=== PATIENT | female | born 1955 | race African-American/Black ===

== ENCOUNTER 2024-03-09 04:09 | Inpatient (IN) | payer OTHER ==
[2024-03-09] MEDS ORDERED: ALBUTEROL SO4 2.5/IPRATROPIUM 0.5 INH SOL 3 ML VIAL.NEB. NEB ONE (04:46)
[2024-03-09] MEDS: ALBUTEROL SO4 2.5/IPRATROPIUM 0.5 INH SOL 3 ML VIAL.NEB. NEB STA (05:18)
[2024-03-09] MEDS: ALBUTEROL SO4 2.5/IPRATROPIUM 0.5 INH SOL 3 ML VIAL.NEB. NEB SCH ×2 (05:18→11:50)
[2024-03-09 05:32] LABS: VENOUS O2 SATURATION 29.1 % (70-80)
[2024-03-09 05:41] LABS: VENOUS PCO2 82.3 mmHg (38-52); VENOUS PH 7.147 (7.310-7.410)
[2024-03-09 05:46] LABS: POTASSIUM 5.8 mmol/L (3.5-5.1)
[2024-03-09 05:50] LABS: ALBUMIN 2.4 g/dl (3.4-5.0); CALCIUM 7.7 mg/dL (8.5-10.1)
[2024-03-09 05:52] LABS: BLOOD UREA NITROGEN 25.4 mg/dL (7-18)
[2024-03-09 05:53] LABS: CREATININE 1.2 mg/dL (0.55-1.3); INR 1.4 (0.83-1.09); PROTHROMBIN TIME (PATIENT) 16.2 SEC (9.7-13.0)
[2024-03-09 05:56] LABS: BILIRUBIN,TOTAL 0.3 mg/dL (0.2-1); TOT PROT 6.1 g/dl (6.4-8.2)
[2024-03-09 05:58] LABS: N-TERMINAL BNP 30409.8 pg/ml (5-125)
[2024-03-09 06:20] LABS: BASO % 0.9 % (0-2.0); HEMATOCRIT 38.2 % (32.4-45.2); HEMOGLOBIN 11.5 GM/dL (10.7-15.3); LYMPH % 20.7 % (8-40); MCH 26.3 pg (25.7-33.7); MCHC 30.2 g/dl (32.0-36.0); MEAN CELL VOLUME 87.2 fl (80-96); MEAN PLT VOLUME 8.9 fl (7.5-11.1); MONO % 8.7 % (3.8-10.2); NEUT % 69.7 % (42.8-82.8); PLATELET COUNT 231 10^3/uL (134-434); RBC 4.38 M/mm3 (3.60-5.2); RDW 17.8 % (11.6-15.6); WHITE BLOOD COUNT 4.8 K/mm3 (4.0-10.0)
[2024-03-09] MEDS ORDERED: NOREPINEPHRINE BITARTRATE 4 MG/4 ML ML IV ONE (06:39)
[2024-03-09 07:13] LABS: EPI CELLS 12 /uL (0-25.1); HYALINE CASTS 2 /uL (0-3.1); URINE APPEARANCE TURBID; URINE BACTERIA >9,000 /uL (0-1359); URINE BILIRUBIN 1+ (NEGATIVE); URINE COLOR DK YELLOW; URINE GLUCOSE (UA) NEGATIVE (NEGATIVE); URINE KETONE TRACE (NEGATIVE); URINE LEUK ESTERASE 3+ (NEGATIVE); URINE NITRITE NEGATIVE (NEGATIVE); URINE PROTEIN 2+ (NEGATIVE); URINE WBC 7216 /uL (0-25.8)
[2024-03-09 07:17] LABS: CALCIUM 8.2 mg/dL (8.5-10.1); POTASSIUM 5.9 mmol/L (3.5-5.1)
[2024-03-09 07:19] LABS: BLOOD UREA NITROGEN 26.7 mg/dL (7-18)
[2024-03-09 07:21] LABS: CREATININE 1.2 mg/dL (0.55-1.3)
[2024-03-09] MEDS ORDERED: PIPERACILLIN/TAZOB 4.5 GM 4.5 GM/100 ML BAG IVPB ONE (07:27)
[2024-03-09] MEDS: PIPERACILLIN/TAZOB 4.5 GM 4.5 GM in DEXTROSE 5%-WATER 100 ML IVPB ONE (07:35)
[2024-03-09] MEDS ORDERED: ALBUTEROL SO4 2.5/IPRATROPIUM 0.5 INH SOL 3 ML VIAL.NEB. NEB SCH (08:00)
[2024-03-09] MEDS ORDERED: VANCOMYCIN 1 GRAM (PRE-DOCKED) 1,000 MG/250 ML BAG IVPB ONE (08:00)
[2024-03-09] MEDS: VANCOMYCIN 1,000 MG in DEXTROSE 5%-WATER - 250 ML IVPB ONE (08:30)
[2024-03-09 09:16] LABS: YEAST NONE SEEN (NEGATIVE)
[2024-03-09] MEDS ORDERED: ARTIFICIAL TEARS OPHTHALMIC DROPS OU PRN (10:21)
[2024-03-09] MEDS ORDERED: [UNRECOGNIZED DRUG - OTHER] SQ SCH (11:00)
[2024-03-09] MEDS: methylPREDNISolone NA SUCC 40 MG/1 ML VIAL IVPUSH SCH (12:06)
[2024-03-09] MEDS: LEVOTHYROXINE SODIUM 100 MCG 5 ML VIAL IVPUSH SCH (12:08)
[2024-03-09] MEDS: NOREPINEPHRINE BITARTRATE 4,000 MCG in DEXTROSE 5%-WATER - 496 ML IV SCH (13:47)
[2024-03-09 14:22] LABS: ARTERIAL BLD GAS O2 SATURATION 97.1 % (95-98); ARTERIAL BLOOD GAS BASE EXCESS -2.9 mmol/L (-2-2); ARTERIAL BLOOD GAS PO2 105.9 mmHg (80-100); ARTERIAL BLOOD GAS pH 7.275 (7.350-7.450)
[2024-03-09 14:23] LABS: ALLENS TEST POSITIVE; VENT MODE S/T; VENT RATE 15
[2024-03-09] MEDS: MIDODRINE HCL 5 MG TABLET PO SCH (15:11)
[2024-03-09] MEDS: FUROSEMIDE 40 MG/4 ML INJECTABLE VIAL IVPUSH ONE (16:24)
[2024-03-09] MEDS: INSULIN ASPART SLIDING SCALE (NOVOLOG) 1 VIAL SQ SCH (16:56)
[2024-03-09] MEDS: PIPERACILLIN/TAZOB 3.375 GM 3.375 GM in DEXTROSE 5%-WATER - 50 ML IVPB SCH (17:19)
[2024-03-09] MEDS ORDERED: PIPERACILLIN/TAZOB 3.375 GM 3.375 GM in DEXTROSE 5%-WATER - 50 ML IVPB SCH (18:00)
[2024-03-09] MEDS ORDERED: DEXTROSE 50%-WATER 25 GM/50 ML DISP.SYRIN ONE (19:52)
[2024-03-09] MEDS ORDERED: INSULIN REGULAR HUMAN 100 UNITS/ML *VIAL ONE (19:52)
[2024-03-09] MEDS ORDERED: VANCOMYCIN HCL 1,500 MG in DEXTROSE 5%-WATER - 250 ML IVPB SCH (20:00)
[2024-03-09] MEDS: CALCIUM GLUCONATE 10% - 1,000 MG/10 ML VIAL IVPB ONE (20:13)
[2024-03-09] MEDS: INSULIN REGULAR HUMAN 100 UNITS/ML *VIAL IVPUSH ONE (20:13)
[2024-03-09] MEDS: DEXTROSE 50%-WATER - 25 GM/50 ML VIAL IVPUSH ONE (20:13)
[2024-03-09] MEDS: NOREPINEPHRINE BITARTRATE/D5W 8 MG/250 ML BAG IVPB SCH (20:30)
[2024-03-09] MEDS: LIDOCAINE PATCH REMOVAL MC SCH (21:36)
[2024-03-09] MEDS: MUPIROCIN 2% TOPICAL OINTMENT FOR DECOLONIZATION NS SCH (21:36)
[2024-03-09] MEDS: NYSTATIN POWDER 100,000 UNITS/GM - 30 GM TOPICAL POWDER TP SCH (21:36)
[2024-03-09] MEDS: CHLORHEXIDINE GLUCONATE 4% CLEANSER FOR DECOLONIZATION TP SCH (22:05)
[2024-03-09] MEDS: VANCOMYCIN PREMIX 1.5 GM 1,500 MG/300 ML BAG IVPB SCH (22:05)
[2024-03-09] MEDS: APIXABAN 2.5 MG TABLET PO SCH (22:32)
[2024-03-09] MEDS: EZETIMIBE 10 MG TABLET (FP) PO SCH (22:32)
[2024-03-09] MEDS: ATORVASTATIN CA 80 MG TABLET (FP) PO SCH (22:32)
[2024-03-09] MEDS: MELATONIN 5 MG TABLETS PO SCH (22:32)
[2024-03-09 22:51] LABS: POTASSIUM 5.3 mmol/L (3.5-5.1)
[2024-03-09 22:52] LABS: CALCIUM 8.1 mg/dL (8.5-10.1)
[2024-03-09 22:53] LABS: BLOOD UREA NITROGEN 26.5 mg/dL (7-18)
[2024-03-09 22:56] LABS: CREATININE 1.1 mg/dL (0.55-1.3)
[2024-03-09] MEDS: SODIUM ZIRCONIUM CYCLOSILICATE (LOKELMA) 5 GM PACKET PO ONE (23:30)
[2024-03-10] MEDS: SODIUM ZIRCONIUM CYCLOSILICATE (LOKELMA) 5 GM PACKET PO ONE (00:37)
[2024-03-10 07:06] LABS: HEMATOCRIT 37.5 % (32.4-45.2); HEMOGLOBIN 11.6 GM/dL (10.7-15.3); MCH 26.2 pg (25.7-33.7); MCHC 30.9 g/dl (32.0-36.0); MEAN CELL VOLUME 84.8 fl (80-96); MEAN PLT VOLUME 8.2 fl (7.5-11.1); PLATELET COUNT 267 10^3/uL (134-434); RBC 4.43 M/mm3 (3.60-5.2); RDW 17.8 % (11.6-15.6)
[2024-03-10 07:39] LABS: BLOOD UREA NITROGEN 29.6 mg/dL (7-18); CALCIUM 7.8 mg/dL (8.5-10.1); MAGNESIUM 2.2 mg/dL (1.8-2.4)
[2024-03-10 07:41] LABS: CREATININE 1.1 mg/dL (0.55-1.3)
[2024-03-10 07:43] LABS: BILIRUBIN,TOTAL 0.4 mg/dL (0.2-1); TOT PROT 5.2 g/dl (6.4-8.2)
[2024-03-10 07:45] LABS: POTASSIUM 5.5 mmol/L (3.5-5.1)
[2024-03-10] MEDS: FUROSEMIDE 40 MG/4 ML INJECTABLE VIAL IVPUSH SCH (09:31)
[2024-03-10] MEDS: PANTOPRAZOLE SODIUM 40 MG VIAL IVPUSH SCH (09:31)
[2024-03-10] MEDS: LIDOCAINE 4% PATCH TP SCH (09:33)
[2024-03-10] MEDS: SODIUM ZIRCONIUM CYCLOSILICATE (LOKELMA) 5 GM PACKET PO SCH (09:33)
[2024-03-10] MEDS: DEXTROSE 50%-WATER 25 GM/50 ML DISP.SYRIN IVPUSH ONE (09:38)
[2024-03-10] MEDS ORDERED: INSULIN REGULAR HUMAN 100 UNITS/ML *VIAL ONE ×2 (09:46→09:55)
[2024-03-10] MEDS: INSULIN REGULAR HUMAN 100 UNITS/ML *VIAL IVPUSH ONE (09:55)
[2024-03-10] MEDS ORDERED: INSULIN (NOVOLOG) ASPART 100 UNITS/ML 10ML VIAL SQ ONE (10:00)
[2024-03-10] MEDS ORDERED: FUROSEMIDE 40 MG/4 ML INJECTABLE VIAL IVPUSH SCH (10:00)
[2024-03-10] MEDS ORDERED: INSULIN (NOVOLOG) ASPART 100 UNITS/ML 10ML VIAL ONE ×2 (11:45→21:18)
[2024-03-10] MEDS: FUROSEMIDE INJECTION 100 MG in SODIUM CHLORIDE 40 ML IVPB SCH (12:37)
[2024-03-10 16:59] LABS: POTASSIUM 5.1 mmol/L (3.5-5.1)
[2024-03-10 17:01] LABS: CALCIUM 7.5 mg/dL (8.5-10.1)
[2024-03-10 17:02] LABS: ALBUMIN 2.1 g/dl (3.4-5.0); BLOOD UREA NITROGEN 31.4 mg/dL (7-18)
[2024-03-10 17:05] LABS: CREATININE 1.3 mg/dL (0.55-1.3)
[2024-03-10 17:06] LABS: BILIRUBIN,TOTAL 0.3 mg/dL (0.2-1); TOT PROT 5.4 g/dl (6.4-8.2)
[2024-03-10] MEDS: [UNRECOGNIZED DRUG - OTHER] SQ ONE (17:46)
[2024-03-10] MEDS: [UNRECOGNIZED DRUG - OTHER] SQ ONE (17:47)
[2024-03-11] MEDS ORDERED: INSULIN (NOVOLOG) ASPART 100 UNITS/ML 10ML VIAL ONE ×2 (06:07→11:29)
[2024-03-11] MEDS: LEVOTHYROXINE NA 112 MCG TABLET (FP) PO SCH (06:08)
[2024-03-11 06:42] LABS: BASO % 0.2 % (0-2.0); HEMATOCRIT 29.8 % (32.4-45.2); HEMOGLOBIN 9.4 GM/dL (10.7-15.3); LYMPH % 7.1 % (8-40); MCH 26.4 pg (25.7-33.7); MCHC 31.6 g/dl (32.0-36.0); MEAN CELL VOLUME 83.4 fl (80-96); MONO % 7.1 % (3.8-10.2); NEUT % 85.6 % (42.8-82.8); PLATELET COUNT 219 10^3/uL (134-434); RBC 3.57 M/mm3 (3.60-5.2); RDW 17.7 % (11.6-15.6); WHITE BLOOD COUNT 5.3 K/mm3 (4.0-10.0)
[2024-03-11 07:04] LABS: ALBUMIN 2.1 g/dl (3.4-5.0); BLOOD UREA NITROGEN 32.3 mg/dL (7-18); CALCIUM 7.7 mg/dL (8.5-10.1)
[2024-03-11 07:05] LABS: MAGNESIUM 2.1 mg/dL (1.8-2.4)
[2024-03-11 07:07] LABS: CREATININE 1.2 mg/dL (0.55-1.3); PHOSPHOROUS 4.5 mg/dL (2.5-4.9)
[2024-03-11 07:09] LABS: BILIRUBIN,TOTAL 0.4 mg/dL (0.2-1); TOT PROT 5.3 g/dl (6.4-8.2)
[2024-03-11] MEDS: ASPIRIN COATED 81 MG TABLET.EC PO SCH (09:25)
[2024-03-11] MEDS: POLYETHYLENE GLYCOL (HEALTHYLAX) 3350 17 GM PACKET PO SCH (09:25)
[2024-03-11] MEDS: FUROSEMIDE 40 MG/4 ML INJECTABLE VIAL IVPUSH SCH (13:16)
[2024-03-11] MEDS: metoPROLOL SUCCINATE 25 MG TAB.SR.24H (FP) PO SCH (13:16)
[2024-03-11] MEDS: oxyCODONE HCL 5 MG TABLET PO PRN (15:50)
[2024-03-11 17:05] LABS: HEMATOCRIT 35.2 % (32.4-45.2); MCH 26.5 pg (25.7-33.7); MCHC 31.4 g/dl (32.0-36.0); MEAN CELL VOLUME 84.4 fl (80-96); MEAN PLT VOLUME 8.3 fl (7.5-11.1); PLATELET COUNT 201 10^3/uL (134-434); RBC 4.17 M/mm3 (3.60-5.2); WHITE BLOOD COUNT 5.8 K/mm3 (4.0-10.0)
[2024-03-11 18:03] LABS: ANISOCYTOSIS 2+; MACROCYTOSIS 0; OVALOCYTE 1+; TARGET CELLS 1+
[2024-03-11] MEDS: SENNOSIDES 8.6MG TABLET (FP) PO SCH (21:12)
[2024-03-12] MEDS: INSULIN (NOVOLOG) ASPART 100 UNITS/ML 10ML VIAL SQ ONE (00:31)
[2024-03-12 06:59] LABS: BASO % 0.2 % (0-2.0); HEMATOCRIT 31.2 % (32.4-45.2); HEMOGLOBIN 9.8 GM/dL (10.7-15.3); LYMPH % 6.1 % (8-40); MCH 26.6 pg (25.7-33.7); MCHC 31.4 g/dl (32.0-36.0); MEAN CELL VOLUME 84.6 fl (80-96); MEAN PLT VOLUME 7.7 fl (7.5-11.1); NEUT % 88.7 % (42.8-82.8); PLATELET COUNT 229 10^3/uL (134-434); RBC 3.69 M/mm3 (3.60-5.2); RDW 17.4 % (11.6-15.6); WHITE BLOOD COUNT 5.8 K/mm3 (4.0-10.0)
[2024-03-12 07:14] LABS: CALCIUM 7.6 mg/dL (8.5-10.1)
[2024-03-12 07:15] LABS: ALBUMIN 2.2 g/dl (3.4-5.0); BLOOD UREA NITROGEN 33.9 mg/dL (7-18)
[2024-03-12 07:18] LABS: CREATININE 1.2 mg/dL (0.55-1.3); PHOSPHOROUS 4.4 mg/dL (2.5-4.9)
[2024-03-12 07:19] LABS: TOT PROT 5.6 g/dl (6.4-8.2)
[2024-03-12 07:20] LABS: BILIRUBIN,TOTAL 0.3 mg/dL (0.2-1)
[2024-03-12] MEDS: ALBUTEROL SO4 2.5/IPRATROPIUM 0.5 INH SOL 3 ML VIAL.NEB. NEB PRN (08:10)
[2024-03-12] MEDS: ASCORBIC ACID 500 MG TABLET (FP) PO SCH (09:19)
[2024-03-12] MEDS: CYANOCOBALAMIN 1,000 MCG TABLET (FP) PO SCH (09:19)
[2024-03-12] MEDS: ERTAPENEM SODIUM 1 GM in SODIUM CHLORIDE 50 ML IVPB SCH (14:33)
[2024-03-13 06:44] LABS: BASO % 0.2 % (0-2.0); HEMATOCRIT 32.3 % (32.4-45.2); HEMOGLOBIN 10.3 GM/dL (10.7-15.3); LYMPH % 13.9 % (8-40); MCH 27.1 pg (25.7-33.7); MEAN CELL VOLUME 84.7 fl (80-96); MEAN PLT VOLUME 7.7 fl (7.5-11.1); MONO % 7.3 % (3.8-10.2); NEUT % 78.6 % (42.8-82.8); PLATELET COUNT 232 10^3/uL (134-434); RBC 3.81 M/mm3 (3.60-5.2); RDW 17.5 % (11.6-15.6); WHITE BLOOD COUNT 5.5 K/mm3 (4.0-10.0)
[2024-03-13 07:20] LABS: POTASSIUM 4.8 mmol/L (3.5-5.1)
[2024-03-13 07:24] LABS: BLOOD UREA NITROGEN 34.4 mg/dL (7-18); CALCIUM 7.4 mg/dL (8.5-10.1)
[2024-03-13 07:28] LABS: CREATININE 1.1 mg/dL (0.55-1.3)
[2024-03-15 09:30] LABS: BASO % 0.3 % (0-2.0); HEMATOCRIT 32.2 % (32.4-45.2); HEMOGLOBIN 10.2 GM/dL (10.7-15.3); LYMPH % 20.8 % (8-40); MCH 26.4 pg (25.7-33.7); MCHC 31.7 g/dl (32.0-36.0); MEAN CELL VOLUME 83.2 fl (80-96); MEAN PLT VOLUME 7.8 fl (7.5-11.1); MONO % 10.1 % (3.8-10.2); NEUT % 68.8 % (42.8-82.8); PLATELET COUNT 238 10^3/uL (134-434); RBC 3.87 M/mm3 (3.60-5.2); RDW 17.4 % (11.6-15.6); WHITE BLOOD COUNT 4.5 K/mm3 (4.0-10.0)
[2024-03-15 09:54] LABS: POTASSIUM 4.6 mmol/L (3.5-5.1)
[2024-03-15 10:00] LABS: BLOOD UREA NITROGEN 33.2 mg/dL (7-18)
[2024-03-15 10:01] LABS: ALBUMIN 1.8 g/dl (3.4-5.0)
[2024-03-15 10:03] LABS: CALCIUM 7.9 mg/dL (8.5-10.1)
[2024-03-15 10:08] LABS: CREATININE 0.8 mg/dL (0.55-1.3)
[2024-03-15 10:09] LABS: BILIRUBIN,TOTAL 0.4 mg/dL (0.2-1)
[2024-03-15 10:11] LABS: TOT PROT 4.4 g/dl (6.4-8.2)
[2024-03-15] MEDS: FUROSEMIDE 40 MG/4 ML INJECTABLE VIAL IVPUSH SCH (13:41)
[2024-03-15 15:03] VITALS: BMI 46.7
[2024-03-16 07:38] LABS: POTASSIUM 4.2 mmol/L (3.5-5.1)
[2024-03-16 07:40] LABS: HEMOGLOBIN 11.7 GM/dL (10.7-15.3); MCH 26.3 pg (25.7-33.7); MCHC 31.6 g/dl (32.0-36.0); MEAN CELL VOLUME 83.1 fl (80-96); MEAN PLT VOLUME 7.9 fl (7.5-11.1); PLATELET COUNT 241 10^3/uL (134-434); RBC 4.45 M/mm3 (3.60-5.2); RDW 17.6 % (11.6-15.6); WHITE BLOOD COUNT 5.1 K/mm3 (4.0-10.0)
[2024-03-16 07:53] LABS: ALBUMIN 1.9 g/dl (3.4-5.0); CREATININE 0.7 mg/dL (0.55-1.3)
[2024-03-16 07:54] LABS: BLOOD UREA NITROGEN 28.9 mg/dL (7-18)
[2024-03-16 07:55] LABS: CALCIUM 7.9 mg/dL (8.5-10.1); TOT PROT 4.7 g/dl (6.4-8.2)
[2024-03-16 07:56] LABS: BILIRUBIN,TOTAL 0.4 mg/dL (0.2-1)
[2024-03-16] MEDS: PANTOPRAZOLE 40 MG TABLET PO SCH (09:57)
[2024-03-16] MEDS: oxyCODONE HCL 5 MG TABLET PO PRN (22:33)
[2024-03-17] MEDS: metoPROLOL SUCCINATE 25 MG TAB.SR.24H (FP) PO SCH (09:50)
[2024-03-18 07:55] LABS: BASO % 0.7 % (0-2.0); HEMATOCRIT 33.9 % (32.4-45.2); HEMOGLOBIN 10.8 GM/dL (10.7-15.3); LYMPH % 25.9 % (8-40); MCH 26.4 pg (25.7-33.7); MCHC 31.9 g/dl (32.0-36.0); MEAN CELL VOLUME 82.9 fl (80-96); MEAN PLT VOLUME 8.6 fl (7.5-11.1); MONO % 12.2 % (3.8-10.2); NEUT % 61.2 % (42.8-82.8); PLATELET COUNT 233 10^3/uL (134-434); RBC 4.09 M/mm3 (3.60-5.2); RDW 17.6 % (11.6-15.6); WHITE BLOOD COUNT 4.4 K/mm3 (4.0-10.0)
[2024-03-18 08:04] LABS: POTASSIUM 4.2 mmol/L (3.5-5.1)
[2024-03-18 08:14] LABS: CALCIUM 8.2 mg/dL (8.5-10.1)
[2024-03-18 08:15] LABS: BLOOD UREA NITROGEN 23.8 mg/dL (7-18)
[2024-03-18 08:18] LABS: CREATININE 0.6 mg/dL (0.55-1.3)
[2024-03-19 09:08] LABS: BLOOD UREA NITROGEN 21.1 mg/dL (7-18); CALCIUM 7.9 mg/dL (8.5-10.1); CREATININE 0.8 mg/dL (0.55-1.3)
[2024-03-20] MEDS: LACTOBACILLUS ACIDOPHILUS 1 TABLET PO SCH (09:37)
[2024-03-20] MEDS: POLYETHYLENE GLYCOL (HEALTHYLAX) 3350 17 GM PACKET PO SCH (09:38)
[2024-03-20 09:53] LABS: BASO % 0.7 % (0-2.0); HEMATOCRIT 31.9 % (32.4-45.2); HEMOGLOBIN 10.3 GM/dL (10.7-15.3); LYMPH % 25.1 % (8-40); MCH 26.8 pg (25.7-33.7); MCHC 32.4 g/dl (32.0-36.0); MEAN CELL VOLUME 82.7 fl (80-96); MEAN PLT VOLUME 8.5 fl (7.5-11.1); MONO % 18.4 % (3.8-10.2); NEUT % 55.8 % (42.8-82.8); PLATELET COUNT 222 10^3/uL (134-434); RBC 3.86 M/mm3 (3.60-5.2); RDW 17.8 % (11.6-15.6); WHITE BLOOD COUNT 3.1 K/mm3 (4.0-10.0)
[2024-03-20 10:12] LABS: BLOOD UREA NITROGEN 20.4 mg/dL (7-18)
[2024-03-20 10:16] LABS: CREATININE 0.7 mg/dL (0.55-1.3)
[2024-03-20] MEDS: TORSEMIDE 20 MG TABLET (FP) PO SCH (13:21)
[2024-03-21 22:05] VITALS: RESP 18
[2024-03-22 09:02] LABS: HEMATOCRIT 34.1 % (32.4-45.2); HEMOGLOBIN 11.1 GM/dL (10.7-15.3); MCH 26.8 pg (25.7-33.7); MCHC 32.6 g/dl (32.0-36.0); MEAN CELL VOLUME 82.1 fl (80-96); MEAN PLT VOLUME 8.4 fl (7.5-11.1); PLATELET COUNT 233 10^3/uL (134-434); RBC 4.15 M/mm3 (3.60-5.2); RDW 17.7 % (11.6-15.6); WHITE BLOOD COUNT 2.7 K/mm3 (4.0-10.0)
[2024-03-22 09:20] LABS: POTASSIUM 3.9 mmol/L (3.5-5.1)
[2024-03-22 09:24] LABS: BLOOD UREA NITROGEN 20.3 mg/dL (7-18); CALCIUM 8.1 mg/dL (8.5-10.1)
[2024-03-22 09:28] LABS: CREATININE 0.8 mg/dL (0.55-1.3)
[2024-03-23 15:48] VITALS: BP 126/51; PULSE 72; TEMP 98.4
== END 2024-03-23 16:28 | DRG 871 ==
LOC: JER 04:09 → JERBED 06:39 → JICU 11:08 → J4S 03-12 17:37
PROVIDERS: ADMIT Internal Medicine; ATTEND Internal Medicine
DX: A41.89 Other specified sepsis (principal); D66 Hereditary factor VIII deficiency; J96.02 Acute respiratory failure with hypercapnia; J96.01 Acute respiratory failure with hypoxia; G93.41 Metabolic encephalopathy; I11.0 Hypertensive heart disease with heart failure; I50.23 Acute on chronic systolic (congestive) heart failure; J44.1 Chronic obstructive pulmonary disease with (acute) exacerbation; E87.29 Other acidosis; N39.0 Urinary tract infection, site not specified; Z68.42 Body mass index [BMI] 45.0-49.9, adult; N17.9 Acute kidney failure, unspecified; E87.5 Hyperkalemia; E11.51 Type 2 diabetes mellitus with diabetic peripheral angiopathy without gangrene; M06.9 Rheumatoid arthritis, unspecified; I25.10 Atherosclerotic heart disease of native coronary artery without angina pectoris; I25.5 Ischemic cardiomyopathy; E66.01 Morbid (severe) obesity due to excess calories; E78.5 Hyperlipidemia, unspecified; E03.9 Hypothyroidism, unspecified; B96.20 Unspecified Escherichia coli [E. coli] as the cause of diseases classified elsewhere; Z89.512 Acquired absence of left leg below knee; Z89.612 Acquired absence of left leg above knee
CPT/HCPCS: 0241U-QW; 36415; 36600; 71045-TC-FY; 80048; 80053; 81003; 82803; 82962; 82977; 83036; 83605; 83735; 83880; 84100; 84439; 84443; 84484; 85025; 85027; 85610; 85730; 86850; 86900; 86901; 87040; 87070; 87086; 87186; 87205; 87324; 87449; 87493; 93005; 93010; 93306-TC; 94640; 94660; 97161-GP; 99285-25; G0480; J1250